=== PATIENT | female | born 1955 | race Caucasian/White ===

== ENCOUNTER 2016-05-20 14:38 | Emergency (ER) | payer OTHER ==
[2016-05-20 16:13] VITALS: BP 168/99; PULSE 60; RESP 16; TEMP 98.1; O2SAT 97
--- NOTE | 2016-05-20 17:14 | UCPHY ---
H & P Time Seen by Provider: 05/20/16 16:49 Patient Type: Established HPI/ROS: 60-year-old female presents complaining of while working in the garden her sunglasses were loose and she was accidentally hit by a branch in her right eye No difficulty with her vision, minimal pain Review of systems As per HPI General no fever no chills no weakness HEENT positive minimal eye pain no eye discharge. Slight eye redness, no sore throat Respiratory no cough, no shortness of breath Cardiac no chest pain, no peripheral edema GI no abdominal pain, no diarrhea, no constipation, no nausea, no vomiting no flank pain, no hematuria, no dysuria Musculoskeletal no myalgias, no joint pain Heme no easy bruising, no easy bleeding Endo no polyuria, no polydipsia Skin no rashes, no pruritus Neuro no syncope, no dizziness, no headaches Psych is no suicidal ideation, no homicidal ideation Past Medical/Surgical History: Noncontributory Social History: Alcohol socially, denies drug use Smoking Status: Current every day smoker Physical Exam: Alert and oriented in no acute distress nontoxic appearance, afebrile Atraumatic normocephalic Neck no JVD Lungs clear to auscultation, no respiratory distress Heart regular rate and rhythm Extremities no cyanosis clubbing edema Right eye Subconjunctival hemorrhage at lateral aspect lower conjunctiva Fluorescein negative for corneal uptake negative for pooling Pupil round reactive to light Visual acuity 20/20 No evidence of hyphema Anterior chamber clear Constitutional: Initial Vital Signs Temperature (C) 36.7 C 05/20/16 16:11 Heart Rate 60 05/20/16 16:11 Respiratory Rate 16 05/20/16 16:11 Blood Pressure 168/99 H 05/20/16 16:11 O2 Sat (%) 97 05/20/16 16:11 O2 Delivery Mode Room Air Allergies/Adverse Reactions: codeine Allergy (Verified 05/20/16 16:11) Home Medications: Medication Instructions Recorded Aspirin 81mg (*) 05/20/16 Medical Decision Making ED Course/Re-evaluation: Patient seen and evaluated for right eye injury Differential diagnosis considered Corneal abrasion, foreign body, hyphema, subconjunctival hemorrhage, conjunctival contusion Impression Conjunctival contusion right/subconjunctival hemorrhage Plan Refresh Follow-up PCP and/or Ophthalmology as needed Departure - Departure Disposition: Home, Routine, Self-Care Clinical Impression: Contusion of right conjunctiva Condition: Good Instructions: Subconjunctival Hemorrhage (ED), Ecchymosis (ED) Referrals: Edie Camp MD [Primary Care Provider] - As per Instructions - PQRS PQRS Measurement: na
== END 2016-05-20 17:32 | disposition home or self-care (01) ==
LOC: CED 14:38
DX: H11.31 Conjunctival hemorrhage, right eye (principal); Z72.0 Tobacco use
CPT/HCPCS: 99213-PO; G0463-PO

== ENCOUNTER 2016-07-22 14:31 | Emergency (ER) | payer OTHER ==
[2016-07-22 14:46] VITALS: BP 117/81; PULSE 72; RESP 16; TEMP 97.3; O2SAT 94
--- NOTE | 2016-07-22 15:41 | EDPHY ---
H & P Time Seen by Provider: 07/22/16 15:12 HPI/ROS: CHIEF COMPLAINT: Left foot injury HISTORY OF PRESENT ILLNESS: 60-year-old female presents with left foot pain. She was using an aerator in her yard this afternoon and was having difficulty penetrating the soil, so she jumped on the aerator. She missed the aerator, and landed on her left foot wrong. She had minimal pain initially, but the pain has gradually increased throughout the day. The pain is mild and increases with weight-bearing. ROS: No numbness, weakness, excessive bleeding, syncopal episode, other injury. Smoking Status: Never smoked Physical Exam: Alert and oriented, pleasant Extremities: left foot -normal inspection, tender over the plantar aspect of the heel, no puncture wound, foot range of motion without pain, no tenderness of the proximal 5th metatarsal, midfoot or anterior aspect of the distal fibula. Achilles tendon intact Skin: Intact Neuro: Motor and sensory intact Vascular: Capillary refill brisk distally Constitutional: Initial Vital Signs Temperature (C) 36.3 C 07/22/16 14:44 Heart Rate 72 07/22/16 14:44 Respiratory Rate 16 07/22/16 14:44 Blood Pressure 117/81 H 07/22/16 14:44 O2 Sat (%) 94 07/22/16 14:44 O2 Delivery Mode Room Air Allergies/Adverse Reactions: codeine Allergy (Verified 07/22/16 14:48) Home Medications: Medication Instructions Recorded Aspirin 81mg (*) 05/20/16 Acyclovir 07/22/16 Medical Decision Making - Diagnostics Imaging Results: X-ray independently reviewed by me reveals no acute fracture. Procedures: A Shah boot was placed. Departure - Departure Disposition: Home, Routine, Self-Care Clinical Impression: Contusion of left foot Qualifiers: Encounter type: initial encounter Qualified Code(s): S90.32XA - Contusion of left foot, initial encounter Condition: Good Instructions: Foot Contusion (ED) Additional Instructions: Ibuprofen 600 mg 3 times daily while the pain persists. Keep your foot elevated whenever possible. Referrals: Edie Camp MD [Primary Care Provider] - As per Instructions Erwin Albreto DPM [Doctor of Podiatric Medicine] - 5-7 days, if not improved
== END 2016-07-22 15:50 | disposition home or self-care (01) ==
LOC: CED 14:31
DX: S90.32XA Contusion of left foot, initial encounter (principal); X58.XXXA Exposure to other specified factors, initial encounter; Y92.007 Garden or yard of unspecified non-institutional (private) residence as the place of occurrence of the external cause; Y99.8 Other external cause status; Y93.39 Activity, other involving climbing, rappelling and jumping off
CPT/HCPCS: 73630-PO; L4386